=== PATIENT | male | born 1970 | race African-American/Black ===

== ENCOUNTER 2018-10-06 20:23 | Emergency (ER) | payer BC ==
[2018-10-06 20:30] VITALS: Ht 185.4 cm
[2018-10-06 22:26] LABS: CALCIUM 9.2 mg/dL (8.5-10.1); CARBON DIOXIDE 26.7 mmol/L (21-32); CHLORIDE SERUM 100 mmol/L (98-107); CREATININE SERUM 1.2 mg/dL (0.7-1.3); GFR1 > 60 mL/min; GLUCOSE SERUM 109 mg/dL (74-106); SODIUM SERUM 138 mmol/L (136-145)
[2018-10-06 22:29] LABS: ALKALINE PHOSPHATASE 72 U/L (46-116); ALT/SGPT 43 U/L (16-63); AST/SGOT 22 U/L (15-37); LIPASE 106 IU/L (73-393); TOTAL PROTEIN, SERUM 8.1 g/dL (6.4-8.2)
[2018-10-07 01:04] VITALS: BP 117/70
== END 2018-10-07 01:04 | disposition home or self-care (01) ==
LOC: ED 20:23
PROVIDERS: Emergency Medicine
DX: R10.9 Unspecified abdominal pain (principal); R11.2 Nausea with vomiting, unspecified
CPT/HCPCS: J0500; J2270; J2405